=== PATIENT | female | born 1955 | race Caucasian/White ===

== ENCOUNTER 2016-03-07 05:32 | Observation (INO) | payer OTHER ==
[2016-02-23 12:03] VITALS: BMI 24.0
--- NOTE | 2016-02-23 12:46 | PAT Medication Instructions ---
Service Date Feb 23, 2016. Current Home Medication List Alendronate Sodium (Fosamax), 70 MG PO MONDAY Anastrozole (Arimidex), 1 MG PO QAM Aspirin (Aspirin), 325 MG PO prn Biotin (Biotin 5000), 10,000 MCG PO QAM Calcium Carbonate-Vitamin D (Calcium + D), 1 TAB PO QAM Psyllium (Metamucil), 1 DOSE PO QAM Medication Instructions For Your Scheduled Surgery - Check with surgeon for instructions: Anastrozole (Arimidex), 1 MG PO QAM Aspirin (Aspirin), 325 MG PO prn headaches - Continue as usual: Alendronate Sodium (Fosamax), 70 MG PO MONDAY - Hold the following medications the morning of surgery: Biotin (Biotin 5000), 10,000 MCG PO QAM Psyllium (Metamucil), 1 DOSE PO QAM Calcium Carbonate-Vitamin D (Calcium + D), 1 TAB PO QAM If you have any questions please call us at [phone] (Lorena Drew PA-C) or [phone] or [phone]
[2016-02-23 13:50] LABS: BASO % 0.5 %; BASO ABS # 0.03 K/uL (0-0.2); COMPLETE YES; EOS % 1.1 %; HEMATOCRIT 38.2 % (37-47); IG% 0.2 %; LYMPH % 31.5 %; LYMPH ABS # 1.76 K/uL (1.2-3.4); MEAN CELL VOLUME 93.2 fL (80-100); MEAN CORPUSCULAR HEMOGLOBIN 30.7 pg (25-34); MEAN PLATELET VOLUME 9.8 fL (7.4-10.4); MONO % 10.8 %; NEUT % 55.9 %; PLATELET COUNT 303 K/uL (130-400); WHITE BLOOD COUNT 5.58 K/uL (4.8-10.8)
[2016-02-23 14:17] LABS: BUN/CREATININE RATIO 12.7 (10-20); CREATININE 0.97 mg/dl (0.60-1.20); POTASSIUM 4.4 mmol/L (3.5-5.1)
[~2016-03-07] VITALS: Ht 157.5 cm; Wt 61.5 kg
[2016-03-07] VITALS (10 sets, daily range): BP systolic 100–127; BP diastolic 67–77; PULSE 75–96; TEMP 36.3–37.1; O2SAT 97–100; Ht 157.5 cm; Wt 61.5 kg
[~2016-03-07 05:32] MED LIST: ALEN70TA2 PO; ANAS1TAB19 PO; ASPI325T45 PO; BIOTCAP2 PO; CALC600T9 PO; PSYL0.524 PO
[2016-03-07] MEDS ORDERED: METRONIDAZOLE 500MG / NSS IV SCH (06:00)
[2016-03-07] MEDS ORDERED: CIPROFLOXACIN / D5W 400 MG IV SCH (06:00)
[2016-03-07] MEDS ORDERED: LACTATED RINGER'S 1000ML 1,000 ML IV SCH ×2 (06:00→11:25)
[2016-03-07] MEDS ORDERED: DEXAMETHASONE SOD INJ 4 MG/ML VIAL ONE (06:26)
[2016-03-07] MEDS ORDERED: ONDANSETRON INJ 2 MG/ML 2 ML VIAL ONE (06:26)
[2016-03-07] MEDS ORDERED: LIDOCAINE HCL 2% 2 ML VIAL (20MG/ML) ONE (06:26)
[2016-03-07] MEDS ORDERED: ROCURONIUM BROMIDE 10 MG/ML 5 ML VIAL ONE ×2 (06:26→08:58)
[2016-03-07] MEDS ORDERED: PROPOFOL IV EMULSION 10 MG/ML 20 ML VIAL IV ONE (06:26)
[2016-03-07] MEDS ORDERED: FENTANYL CITRATE INJ 50 MCG/1 ML 2 ML VIAL ONE (06:26)
[2016-03-07] MEDS ORDERED: MIDAZOLAM HCL 1 MG/ML 2ML VIAL ONE (06:26)
--- NOTE | 2016-03-07 07:07 | History & Physical Bridge Note ---
H&P Re-Evaluation Bridge Note: I have examined the patient, reviewed the History & Physical and in the interval since the performance of the History & Physical I have noted the following changes of clinical significance:Reviewed possibility of laparotomy as prior colon surgery. TABITHA
[2016-03-07] MEDS ORDERED: HYDROmorphone INJ 2 MG/ML SYR/VIAL ONE (08:04)
[2016-03-07] MEDS ORDERED: PROMETHAZINE HCL INJ 12.5 MG in SODIUM CHLORIDE 0.9% 50ML 50 ML IV PRN ×2 (08:15→11:30)
[2016-03-07] MEDS ORDERED: ATROPINE SULFATE 0.1 MG/ML 5ML SYR IV PRN (08:15)
[2016-03-07] MEDS ORDERED: ONDANSETRON INJ 2 MG/ML 2 ML VIAL IV PRN ×2 (08:15→11:30)
[2016-03-07] MEDS ORDERED: HYDROmorphone INJ 2 MG/ML SYR/VIAL IV PRN (08:15)
[2016-03-07] MEDS ORDERED: KETOROLAC TROMETHAMINE 30 MG/ML VIAL IV. PRN ×2 (08:15→11:30)
[2016-03-07] MEDS ORDERED: GLYCOPYRROLATE INJ 0.2 MG/ML VIAL ONE ×2 (08:16→08:26)
[2016-03-07] MEDS ORDERED: NEOSTIGMINE METHYLSULFATE 5 MG/5 ML SYR ONE (08:26)
--- NOTE | 2016-03-07 10:59 | [facility] Post Operative Brief Note ---
Immediate Operative Summary Operative Date Mar 07, 2016. Pre-Operative Diagnosis Cervical intraepithelial neoplasia III for robotic hysterectomy Post-Operative Diagnosis Intraoperative Cystotomy Procedure(s) Performed Robotic assisted Laparoscopic Repair of Intraoperative Cystotomy Surgeon Diego Melendez MD Brush Holder Assembler Surgeon(s) Dr. Connor Brown Estimated Blood Loss 10 cc Findings Intraop high posterior bladder wall cystotomy appreciated, UOs not involved, closed in 2 layers. Intraop cysto by Dr. Brown demonstrated watertight repair , efflux of methylene blue from both UOs. Drains 18 fr silicone dukes, pelvic drain recommended Anesthesia GAET Complication(s) None Disposition Recovery Room / PACU
[2016-03-07] MEDS ORDERED: METOPROLOL TARTRATE 1 MG/ML VIAL ONE (11:12)
[2016-03-07] MEDS ORDERED: BUPIVACAINE 0.5 % 5 MG/1 ML MPF 30ML VIAL INJ ONE (11:13)
[2016-03-07] MEDS ORDERED: PREMARIN VAG CRM 14 APPLN/30 GM TUBE PV ONE (11:14)
--- NOTE | 2016-03-07 11:25 | [facility] Operative Report ---
Operative Report Operative Date Mar 07, 2016. Pre-Operative Diagnosis Cervical intraepithelial neoplasia III for robotic hysterectomy Post-Operative Diagnosis Same, extensive abdominal adhesions and bladder adhesions Procedure(s) Performed Robotically assisted TLH+BSO. Lysis of adhesions. Cystotomy. Cystoscopy. Surgeon Diego Melendez MD, Kevin Platen Grinder Surgeon(s) Dr. Connor Brown Estimated Blood Loss 40ml Findings Extensive adhesions Specimens Uterus, Cx, adnexa Drains 18 fr silicone dukes, pelvic drain Round 10 EDNA Anesthesia GAET Complication(s) Cystotomy (small) Disposition Recovery Room / PACU Description of Procedure See dict note I attest to the content of the Intraoperative Record and any orders documented therein. Any exceptions are noted below.
[2016-03-07] MEDS ORDERED: MEPERIDINE HCL 50 MG/ML CARP IV PRN (11:30)
[2016-03-07] MEDS ORDERED: SIMETHICONE 80 MG CHEW PO PRN (11:30)
[2016-03-07] MEDS ORDERED: PROMETHAZINE HCL INJ 25 MG in SODIUM CHLORIDE 0.9% 50ML 50 ML IV PRN (11:30)
[2016-03-07] MEDS ORDERED: MEPERIDINE HCL 75 MG/ML CARP IV PRN (11:30)
[2016-03-07] MEDS ORDERED: OXYCODONE/ACETAMINOPHEN 5-325 TAB PO PRN ×2 (11:30)
[2016-03-07] MEDS ORDERED: ZOLPIDEM TARTRATE 5 MG TAB PO PRN (11:30)
[2016-03-07] MEDS ORDERED: BISACODYL 10 MG SUPP PR PRN (11:30)
[2016-03-07] MEDS ORDERED: MAGNESIUM HYDROXIDE SUSP 30 ML UDC PO PRN (11:30)
[2016-03-07] MEDS ORDERED: IBUPROFEN 600 MG TAB PO PRN (11:30)
[2016-03-07] MEDS ORDERED: ACETAMINOPHEN 325 MG TAB PO PRN (11:30)
[2016-03-07] MEDS ORDERED: IV FLUIDS COMPLETED PRN (12:00)
--- NOTE | 2016-03-07 13:17 | Anesthesiology Progress Note ---
Anesthesia Post Op Note Date & Time Mar 07, 2016 at 13:17 Vital Signs Vital Signs Past 12 Hours Date Time Temp Pulse Resp B/P Pulse Ox O2 Delivery O2 Flow Rate FiO2 03/07/16 12:30 100 Nasal Cannula 1.0 03/07/16 12:15 36.0 67 13 124/72 100 Nasal Cannula 2 03/07/16 12:05 80 14 143/84 99 Nasal Cannula 2 03/07/16 11:55 65 20 136/77 98 Mask 10 03/07/16 11:45 72 12 128/77 99 Mask 10 03/07/16 11:37 36.1 91 14 120/91 99 Mask 10 03/07/16 06:05 36.8 75 16 100/77 97 Room Air Notes Mental Status: alert / awake / arousable, participated in evaluation Pt Amnestic to Procedure: Yes Nausea / Vomiting: adequately controlled Pain: adequately controlled Airway Patency, RR, SpO2: stable & adequate BP & HR: stable & adequate Hydration State: stable & adequate Anesthetic Complications: no major complications apparent
--- NOTE | 2016-03-07 13:37 | OPERATIVE REPORT ---
DATE OF OPERATION: 03/07/2016 PREOPERATIVE DIAGNOSIS: Severe cervical intraepithelial neoplasia recurrent. POSTOPERATIVE DIAGNOSES: Same and extensive adhesions of the pelvis. PROCEDURES: Robotically assisted total laparoscopic hysterectomy, bilateral salpingo-oophorectomy, lysis of adhesions and cystoscopy. SURGEON: Dr. Brown. FRAME POLISHER: Dr. Reis and Dr. Melendez. ESTIMATED BLOOD LOSS: 40 mL. FINDINGS: Severe intraoperative adhesions of the colon to the anterior abdominal wall, uterus and the bladder region. DRAINS: Salcido catheter and 18 Greek and a #10 round Zachariah-Yancey pelvic drain. ANESTHETIC: General anesthesia. COMPLICATIONS: Intraoperative cystotomy. DISPOSITION: Recovery room. CLINICAL NOTE: Lurdes was reviewed with the surgery beforehand. Discussed the possibility of open laparotomy with the potential for extensive adhesions and discussed the potential for intraoperative organ injury including bladder, bowel and ureter due to extensive adhesions and prior section. DESCRIPTION OF PROCEDURE: The patient was taken back to recovery room received preoperative antibiotics, was given a general anesthetic, prepped and draped in dorsal lithotomy position in [facility]. Bladder drained. Vaginal opening was somewhat narrow, but we were able to visualize the cervix. It was heavily distorted. This was due to prior LEEP procedure. We were able to identify what we thought initially was the cervical os; however, this was a false passage. We initially inserted a V-Care in place using 0 Vicryl sutures; however, once we realized it was a false passage, we readjusted intraoperatively the V-Care and actually eventually removed this and used a sponge on a stick instead. Gloves were changed and a supraumbilical incision was made with scalpel. Using open Alfonso technique, we cut down through subcutaneous fat to the fascia in the midline. Rectus muscle split. Peritoneal cavity entered and blunt-tipped Alfonso trocar with balloon was then placed. Balloon was inflated and CO2 gas to insufflate the abdomen. FINDINGS: Upper abdomen showed extensive adhesions, specifically the right side was difficult to visualize, the left side had lysed adhesions; however, the uterus was not actually visualized as there were extensive adhesions of the colon over this area. We did obtain deep Trendelenburg position and placed 2 laparoscopic ports on the left side, 1 robotic port on the other 11 mm bladeless accessory port. These were placed under direct visualization. On visualizing here we used the Harmonic scalpel and the 10 mm laparoscope to take down some of the adhesions in the midline abdomen as well. Using Harmonic we made certain to only cut 2 areas which were deemed to be unlikely the bowel and we were able to take down adhesions extensively in the pelvis as well. Specifically, the area of the colon I was able to dissect away with the harmonic up to the anterior bladder region. At this stage, I was actually able to see the uterus itself. There were still adhesions on the left side as well, but I was able to place a right robotic port under direct visualization as well. I could not place a fourth arm as there were too many adhesions, so at this stage, we began to re-dock the robot and began the case from here forth with robotic assistance. Arm #1 was monopolar jass. Arm #2 was bipolar [place]. Using the accessory port 2 to retract on the uterus with a tenaculum and on bowel was a suction clinical documentation nurse at times. The case was begun by first identifying the left and right ureters. They seemed to follow a normal course, it was much more difficult to see on the left side. The bladder flap area was extensively adhesed and could not be seen easily. At this stage, we did identified a window, first starting on the left side of the broad ligament, identified the ureter, made a window between to allow coagulation of the IP ligament proximal to the left ovary and tube, this was then coagulated and cut and this was skeletonized away. I was able to coagulate and cut the round ligament as well on the left side, skeletonized the left uterine vessels, coagulated and cut these as well. Of note, the ureter location was also well away from the area. In the right side the exact same process occurred. We were able to then address the bladder area. Because of the dense adhesions, I retrofilled the bladder with sterile saline and identified the bladder, seemed to be well away from the site. There was no easy plane to be made as the patient had prior and also prior LEEP procedure. In what I felt was a location well away from the bladder and very high up, we cut sharply with monopolar jass and then identified. There was a small cystotomy. The bladder had been tented up undoubtedly due to prior surgeries. The cystotomy was very small and I was actually able to identify the correct plane of the cervix after the cystotomy, I was then able to liberalize adhesions away from this area and then identify a spot where to make an anterior colpotomy. This was done and identified the sponge in the vagina, we then continued this around laterally staying medial of our uterine vessel ligations. Once the cervix was fully detached from the vagina, it was pulled into the vagina and then removed. A sponge and a glove was then placed for maintaining pneumoperitoneum. At this stage, we irrigated generously and were able to identify no active bleeders. Cuff was then closed by exchanging instruments, arm #1 became the andres needle hazmat truck driver, arm #2 the cobra 12 inch 90 day 2-0 V-Loc suture then passed through the accessory port. Cuff vaginal tissue should be noted was very thin and not overly vascular. We did close the cuff from left to right back right to left to ensure there was an airtight closure. Because of the false passage as well which was just posterior and initially right and also on the left we also closed these vaginally as well these defects. At this stage, hemostasis improved in the vagina as well. After cutting the suture of the 2-0 V-Loc 90 day suture, we then removed the needle through the accessory port. At this stage, Dr. Melendez then came into the case, he repaired the bladder, an operative note has been dictated. We then retrofilled the bladder further and ensured it was a watertight seal. Cystoscopy was then performed while patient was in Trendelenburg position. I was able to get good strong jets of blue dye from both left and right ureter openings. The repair seemed watertight and there were no other stitches noted within the bladder from the vaginal cuff repair. After removal of the cystoscope, a new Salcido catheter was placed. Because of poor tissue quality and some ooze from the vagina we did place a pack with Premarin cream into the vagina which will last just overnight. We then placed a drain through the left robotic port after undocking the robot on this area, this was a 10 mm round Zachariah-Yancey. This was placed in the pelvis. This was then sewn in place in the usual fashion and the robot was undocked after instruments were removed. Incisions all injected with Marcaine and irrigated. Fascia closed carefully with numerous [id number] stitches in the umbilical incision. It should be noted her tissue quality was somewhat poor here as well as tissues were thin and somewhat terrible. Deep subcutaneous sutures in the left upper quadrant and umbilical stitch as well with 0 Vicryl, 4-0 subcuticular Monocryl closure with Dermabond. Sponge and instrument counts were correct. The patient sent to operating room in stable condition. Please note, total time of surgery approximately 4 hours. Additionally, discussed cystotomy and extensive adhesions with family. I attest to the content of the Intraoperative Record and any orders documented therein. Any exceptions are noted below. MUMTAZD
--- NOTE | 2016-03-07 14:06 | OPERATIVE REPORT ---
DATE OF OPERATION: 03/07/2016 PREOPERATIVE DIAGNOSIS: Intraoperative bladder injury. POSTOPERATIVE DIAGNOSIS: Same. PROCEDURE: Repair of intraoperative bladder injury. SURGEON: Dr. Bonifacio Melendez. FURNITURE REFINISHER: David Brown MD ANESTHESIA: General anesthesia with endotracheal intubation. ESTIMATED BLOOD LOSS: For this portion of the procedure was minimal. SPECIMENS SENT TO PATHOLOGY: For this portion of the procedure none. DRAINS LEFT IN PLACE: An 18-Lebanese silicone catheter to gravity drainage and a pelvic drain recommended. FINDINGS: The high posterior bladder wall cystotomy repaired in 2 layers with a watertight closure, evidence of methylene blue efflux from both ureters by intraoperative cystoscopy by primary surgeon. BRIEF HISTORY OF PRESENT ILLNESS: Ms. Corbin is a 60-year-old female who is undergoing a robot-assisted laparoscopic extirpated hysterectomy for a history of cervical dysplasia by Dr. Daiman Brown today. Over the course of the procedure after a difficult dissection and lysis of adhesions, an intraoperative bladder injury was appreciated. Intraoperative urgent urology consultation was sought out to assist with the ongoing surgery. DESCRIPTION OF PROCEDURE: The patient had been prepped and draped with ongoing management by the OWNER service. Please refer to their operative report for their portions of the surgery. On entering the OR, I approached the robotic console and evaluated the pelvis. A clean side to side cystotomy of approximately 3-4 cm was noted in the high posterior bladder wall. Bladder neck and Salcido catheter were appreciated coming through the urethra and due to the distance from the bladder neck the odds of intraoperative ureteral injury were felt to be quite slim at this site. No evidence of other bladder injury or abnormalities were appreciated. Using robotic needle drivers, the incision was closed in 2 layers including a 3-0 chromic running suture on the mucosal and deep detrusor layer and a second layer closed of 2-0 Vicryl in a Lembert fashion. After this was complete, greater than 200 mL were placed into the bladder via the sterile Salcido catheter with clear bladder distention and no evidence of any leakage from the cystotomy repair. Bladder was replaced to catheter drainage and the case was continued per the OWNER service. Intraoperative cystoscopy by OWNER was witnessed personally and demonstrated closure posteriorly high in the bladder wall consistent with the intraoperative findings. This was noted to be watertight with the bladder able to be distended visualized without evidence of leakage on the laparoscopic screen. Ureteral orifices were noted to be effluxing methylene blue on both sides. Some mild posterior Salcido trauma was also appreciated with no intravesical papillary lesions or masses noted. Case was turned over to the primary service. FOLLOWUP CARE: I recommend Salcido drainage for approximately 1 week. We will arrange for outpatient cystogram prior to a trial of void and outpatient visit with myself. Consider suppressive antibiotics while Salcido catheter in place seeing postoperative status for example nitrofurantoin 100 mg p.o. at bedtime. I recommend a pelvic drain to monitor for output and any urine leak in the inpatient postoperative period which can be removed prior to discharge home. I attest to the content of the Intraoperative Record and any orders documented therein. Any exceptions are noted below. MTDD
[2016-03-07] MEDS: DOCUSATE SODIUM 100 MG CAP PO SCH (20:11)
[2016-03-07 20:22] LABS: HEMATOCRIT 33.2 % (37-47)
[2016-03-08 03:20] VITALS: BP 103/66; PULSE 95; TEMP 37.5; O2SAT 97
[2016-03-08 06:43] LABS: COMPLETE YES; HEMATOCRIT 31.2 % (37-47); IG% 0.2 %; LYMPH % 13.1 %; LYMPH ABS # 1.59 K/uL (1.2-3.4); MEAN CELL VOLUME 91.8 fL (80-100); MEAN CORPUSCULAR HGB CONC 32.7 g/dl (32-36); MEAN PLATELET VOLUME 9.5 fL (7.4-10.4); MONO % 12.1 %; NEUT % 74.6 %; PLATELET COUNT 194 K/uL (130-400); WHITE BLOOD COUNT 12.12 K/uL (4.8-10.8)
--- NOTE | 2016-03-08 06:58 | OB/GYN Progress Note ---
MASSAGE THERAPIST Progress Note Date of Service Mar 08, 2016. Subjective conversation w/ patient, physical exam, chart review, lab review Ambulation: ambulating normally Voiding: dukes catheter in place Passing Gas: No Diet Tolerance: Regular Diet Lochia: Small Objective Vital Signs Date Time Temp Pulse Resp B/P Pulse Ox O2 Delivery O2 Flow Rate FiO2 03/08/16 03:20 37.5 95 20 103/66 97 Room Air 03/07/16 23:15 37.1 95 16 108/71 97 Room Air 03/07/16 23:15 Room Air 03/07/16 21:28 36.7 03/07/16 21:28 36.9 03/07/16 21:10 36.6 03/07/16 20:20 36.3 90 18 117/76 99 Room Air 90 03/07/16 15:30 36.3 96 18 103/70 99 Room Air 03/07/16 15:30 99 Room Air 03/07/16 14:30 36.3 80 16 106/70 99 Room Air 03/07/16 13:30 36.3 84 16 103/67 100 Nasal Cannula 1.0 03/07/16 13:00 36.3 75 18 117/77 100 Nasal Cannula 1.0 03/07/16 12:30 100 Nasal Cannula 1.0 03/07/16 12:30 36.3 76 18 127/72 100 Nasal Cannula 1.0 03/07/16 12:30 100 Nasal Cannula 1.0 03/07/16 12:15 36.0 67 13 124/72 100 Nasal Cannula 2 03/07/16 12:05 80 14 143/84 99 Nasal Cannula 2 03/07/16 11:55 65 20 136/77 98 Mask 10 03/07/16 11:45 72 12 128/77 99 Mask 10 03/07/16 11:37 36.1 91 14 120/91 99 Mask 10 Physical Exam General Appearance: WELL-APPEARING Respiratory/Chest: lungs clear Cardiovascular: regular rate, rhythm Abdomen: normal bowel sounds, soft Incision Description: Clean, Dry & Intact Extremities: no calf tenderness Laboratory Results Last 24 Hours Test 03/07/16 20:13 03/08/16 06:20 Hemoglobin 10.7 g/dL 10.2 g/dL Hematocrit 33.2 % 31.2 % White Blood Count 12.12 K/uL Red Blood Count 3.40 M/uL Mean Corpuscular Volume 91.8 fL Mean Corpuscular Hemoglobin 30.0 pg Mean Corpuscular Hemoglobin Concent 32.7 g/dl Platelet Count 194 K/uL Mean Platelet Volume 9.5 fL Neutrophils (%) (Auto) 74.6 % Lymphocytes (%) (Auto) 13.1 % Monocytes (%) (Auto) 12.1 % Eosinophils (%) (Auto) 0.0 % Basophils (%) (Auto) 0.0 % Neutrophils # (Auto) 9.03 K/uL Lymphocytes # (Auto) 1.59 K/uL Monocytes # (Auto) 1.47 K/uL Eosinophils # (Auto) 0.00 K/uL Basophils # (Auto) 0.00 K/uL RDW Standard Deviation 45.3 fL RDW Coefficient of Variation 13.6 % Immature Granulocyte % (Auto) 0.2 % Immature Granulocyte # (Auto) 0.03 K/uL Assessment and Plan Post-Op Day Number: 1 Continue Routine Care: POD#1 from 4 hr surgery and cystotomy. Patient well, minimal pain. Urine clear. Drain pulled and vaginal packing removed. Plan home today after seen by urology. Will need to go home with dukes. TABITHA
[2016-03-08] MEDS ORDERED: OXYC-57 PO ×2 (06:59)
[2016-03-08] MEDS ORDERED: MTR600X PO ×2 (06:59)
--- NOTE | 2016-03-08 07:00 | Discharge Instructions ---
Discharge Instructions Admission Reason for Admission: Cervical Intraepithelial Neoplasia Discharge Discharge Diagnosis / Problem: severe cervical dysplasia, adhesions, cystotomy Discharge Goals Goal(s): Routine recovery after surgery Activity Recommendations Activity Limitations: per Instructions/Follow-up section . Instructions / Follow-Up Instructions / Follow-Up POST OPERATIVE: BOWEL FUNCTION/MEDICATIONS: 1. Constipation pain and discomfort are the most common complaints 5-7 days after surgery. Points 2-6 address the things that can help. 2. Chewing gum can help stimulate the gut and help improve digestion and motility. 3. Milk of Magnesia 1-2 times per day until return of bowel function. 4. Colace is a stool softener that helps. Taking this 2-3 times per day until bowel function returns to normal is highly recommended. 5. Dulcolax is a laxative that may be used if several days have passed without a bowel movement. Alternatively Miralax may be used daily instead. 6. Drink plenty of fluids as this will also reduce constipation. 7. Narcotic pain medications will be prescribed by your physician. They are safe to use and we encourage you to use them. If you are not allergic, ibuprofen will also be prescribed. Many patients will be able to transition off of the narcotic medications to ibuprofen by postoperative day 3. ACTIVITY RECOMMENDATIONS: 1. Get plenty of rest and listen to your body. If you are tired, take a nap. 2. You may shower, but do not take a tub bath until you see your doctor at the 2 week post operative visit. 3. Absolutely NO intercourse and nothing in the vagina until you are examined by your doctor at the 6 week visit. At that visit it will be determined when such activities can be resumed. This can range from 6-12 weeks after your surgery depending on healing time. 4. The main physical activity in the first week should be walking. By the second week you can slowly increase activity. There are no limits on walking up and down stairs. 5. Do not lift more than 5-10 lbs for 4 weeks. Remember the "one-handed rule", i.e. if you can lift something with only one hand it's likely okay. 6. Minimize commercial artist lettering like vacuuming and exercising for 4 weeks. "Overdoing it" can lead to incisions not healing, pain and vaginal bleeding , so again, listen to your body. 7. Driving can be resumed when you feel able. Do not drive within 24 hours of taking a narcotic medication. EXPECTATIONS: 1. Vaginal spotting, bleeding and discharge are common after surgery. There may even be an odor to the discharge which is often related to sutures used in the vagina. If you experience heavy vaginal bleeding, call the office number day or night [phone]. 2. Bladder discomfort is common after surgery from the catheter. This usually resolves in 1-2 weeks. 3. By the end of the 3rd or 4th week you should be feeling much better. It may take up to 6 weeks for your energy levels to return to normal. 4. Narcotic medications have side effects such as: dizziness, headache, nausea and/or vomiting. If you suspect your pain medication is causing problems, call our office and we may be able to prescribe an alternate medication. 5. The skin incisions are often covered with a liquid bandage. This will gradually peel off over time. CALL THE OFFICE IF YOU HAVE ANY OF THE FOLLOWIN. Temperature of 101 degrees or higher. 2. Severe abdominal or pelvic pain not relieved by pain medication. 3. Persistent nausea or vomiting. 4. Increased pain with urination or difficulty urinating. 5. Bright red bleeding that soaks more than 1 pad per hour. CONTACT PHONE NUMBERS: Main Office: [phone] Surgical Nurse: [phone] extension [phone] Avoid all tobacco products. If you need help to stop smoking, call [place]'s FREE QUITLINE at . This is a free call. Current Hospital Diet Patient's current hospital diet: Regular Diet Discharge Diet Recommended Diet: Regular Diet Procedures Procedures Performed: Robotic assisted Laparoscopic Repair of Intraoperative Cystotomy Pending Studies Studies pending at discharge: no Medical Emergencies . Who to Call and When: Medical Emergencies: If at any time you feel your situation is an emergency, please call 911 immediately. . Non-Emergent Contact Non-Emergency issues call your: Primary Care Provider . . "Provider Documentation" section prepared by David Brown. VTE Core Measure Inpt VTE Proph given/why not?: Memo Leroy, SCD's
[2016-03-08 07:17] LABS: BUN/CREATININE RATIO 10.2 (10-20); CREATININE 0.93 mg/dl (0.60-1.20); POTASSIUM 4.1 mmol/L (3.5-5.1)
[2016-03-08] MEDS: DOCUSATE SODIUM 100 MG CAP PO SCH (07:38)
--- NOTE | 2016-03-08 08:04 | Anesthesiology Progress Note ---
Anesthesia Post Op Note Date & Time Mar 08, 2016 at 08:03 Vital Signs Vital Signs Past 12 Hours Date Time Temp Pulse Resp B/P Pulse Ox O2 Delivery O2 Flow Rate FiO2 03/08/16 03:20 37.5 95 20 103/66 97 Room Air 03/07/16 23:15 37.1 95 16 108/71 97 Room Air 03/07/16 23:15 Room Air 03/07/16 21:28 36.7 03/07/16 21:28 36.9 03/07/16 21:10 36.6 03/07/16 20:20 36.3 90 18 117/76 99 Room Air 90 Notes Mental Status: alert / awake / arousable, participated in evaluation Pt Amnestic to Procedure: Yes Nausea / Vomiting: adequately controlled Pain: adequately controlled Airway Patency, RR, SpO2: stable & adequate BP & HR: stable & adequate Hydration State: stable & adequate Anesthetic Complications: no major complications apparent
[2016-03-08 08:20] VITALS: BP 94/58; PULSE 89; TEMP 37.3
--- NOTE | 2016-03-08 10:05 | Progress Note ---
Subjective Date of Service: Mar 08, 2016. Subjective Pt evaluation today including: conversation w/ patient, chart review, lab review Voiding: dukes catheter in place (patent, draining clear, light green urine) 60 yo female s/p intraoperative bladder repair of bladder injury. Pt doing well this morning. Denies pain or n/v. Dukes in place draining clear, light green urine. Review of Systems Constitutional: No chills, No fever Respiratory: No shortness of breath Cardiac: No chest pain Abdomen: No nausea, No pain, No vomiting Female : No hematuria Heme: No abnormal bleeding/bruising Objective Vital Signs Date Time Temp Pulse Resp B/P Pulse Ox O2 Delivery O2 Flow Rate FiO2 03/08/16 08:20 Room Air 03/08/16 08:20 37.3 89 18 94/58 Room Air 03/08/16 03:20 37.5 95 20 103/66 97 Room Air 03/07/16 23:15 37.1 95 16 108/71 97 Room Air 03/07/16 23:15 Room Air 03/07/16 21:28 36.7 03/07/16 21:28 36.9 03/07/16 21:10 36.6 03/07/16 20:20 36.3 90 18 117/76 99 Room Air 90 03/07/16 15:30 36.3 96 18 103/70 99 Room Air 03/07/16 15:30 99 Room Air 03/07/16 14:30 36.3 80 16 106/70 99 Room Air 03/07/16 13:30 36.3 84 16 103/67 100 Nasal Cannula 1.0 03/07/16 13:00 36.3 75 18 117/77 100 Nasal Cannula 1.0 03/07/16 12:30 100 Nasal Cannula 1.0 03/07/16 12:30 36.3 76 18 127/72 100 Nasal Cannula 1.0 03/07/16 12:30 100 Nasal Cannula 1.0 03/07/16 12:15 36.0 67 13 124/72 100 Nasal Cannula 2 03/07/16 12:05 80 14 143/84 99 Nasal Cannula 2 03/07/16 11:55 65 20 136/77 98 Mask 10 03/07/16 11:45 72 12 128/77 99 Mask 10 03/07/16 11:37 36.1 91 14 120/91 99 Mask 10 Physical Exam General Appearance: no apparent distress Eyes: normal inspection ENT: hearing grossly normal Neck: no JVD Respiratory/Chest: no respiratory distress, no accessory muscle use Cardiovascular: no JVD Abdomen: + pertinent finding (soft abdomen; abdominal incisions c/d/i) Extremities: normal inspection Neurologic/Psychiatric: alert, normal mood/affect, oriented x 3 Skin: normal color Laboratory Results Last 24 Hours Test 03/07/16 20:13 03/08/16 06:20 Hemoglobin 10.7 g/dL 10.2 g/dL Hematocrit 33.2 % 31.2 % White Blood Count 12.12 K/uL Red Blood Count 3.40 M/uL Mean Corpuscular Volume 91.8 fL Mean Corpuscular Hemoglobin 30.0 pg Mean Corpuscular Hemoglobin Concent 32.7 g/dl Platelet Count 194 K/uL Mean Platelet Volume 9.5 fL Neutrophils (%) (Auto) 74.6 % Lymphocytes (%) (Auto) 13.1 % Monocytes (%) (Auto) 12.1 % Eosinophils (%) (Auto) 0.0 % Basophils (%) (Auto) 0.0 % Neutrophils # (Auto) 9.03 K/uL Lymphocytes # (Auto) 1.59 K/uL Monocytes # (Auto) 1.47 K/uL Eosinophils # (Auto) 0.00 K/uL Basophils # (Auto) 0.00 K/uL RDW Standard Deviation 45.3 fL RDW Coefficient of Variation 13.6 % Immature Granulocyte % (Auto) 0.2 % Immature Granulocyte # (Auto) 0.03 K/uL Sodium Level 142 mmol/L Potassium Level 4.1 mmol/L Chloride Level 108 mmol/L Carbon Dioxide Level 27 mmol/L Anion Gap 7.0 mmol/L Blood Urea Nitrogen 10 mg/dl Creatinine 0.93 mg/dl Est Creatinine Clear Calc Drug Dose 54.8 ml/min Estimated GFR () 76.9 Estimated GFR (Non- 66.3 BUN/Creatinine Ratio 10.2 Random Glucose 111 mg/dl Calcium Level 8.0 mg/dl Assessment and Plan POD #1 s/p intraoperative repair of bladder injury Pt doing well post-op. Recommend leaving dukes catheter in place for 7 days. Will plan for outpatient cystogram and TOV at that time. No further management at this time. Thanks for allowing us to participate in this pt's care. Recall PRN issues. Discharge planning: home
[2016-03-08 11:59] VITALS: BP 94/58; PULSE 89; TEMP 37.3; O2SAT 97
--- NOTE | 2016-03-15 12:20 | DISCHARGE SUMMARY ---
Lurdes had a complicated total laparoscopic hysterectomy on 03/07/2016. It was complicated by severe intraabdominal adhesions and bladder adhesions. Operative note as dictated. She did have a cystotomy into her bladder which was repaired at the time of surgery and laparoscopically. Her course in the hospital was uncomplicated. By postop day #1 she met discharge criteria. Specifically at that time she was ambulating well, tolerating an oral diet, minimal pain and no vaginal bleeding. She had a Salcido catheter in place as per urology protocol and had no extremity pain. PHYSICAL EXAMINATION: VITAL SIGNS: Her vital signs were stable. She was afebrile. LUNGS: Clear. CARDIOVASCULAR EXAMINATION: Normal rate and rhythm. No audible murmur. ABDOMINAL EXAMINATION: Benign. Nontender. Bowel sounds positive. Incision is clean, dry and intact. EXTREMITY EXAMINATION: Negative. IMPRESSION AND PLAN: Postop day #1 from complicated 4-hour total laparoscopic hysterectomy with multiple adhesions. Sent home with catheter and followup with urology care. Patient given pain medication prescriptions as well and told to contact us with any other concerns.
== END 2016-03-08 13:25 | disposition home or self-care (01) ==
LOC: C.ACU 05:32 → C.OBG 11:27
PROVIDERS: ADMIT Obstetrics & Gynecology; ATTEND Obstetrics & Gynecology
DX: D06.9 Carcinoma in situ of cervix, unspecified (principal); K66.0 Peritoneal adhesions (postprocedural) (postinfection); N99.71 Accidental puncture and laceration of a genitourinary system organ or structure during a genitourinary system procedure
CPT/HCPCS: 51999; 58571; S2900

== ENCOUNTER → 2016-03-15 | Outpatient (CLI) | payer OTHER ==
[~2016-03-15] MED LIST changes: +MTR600X PO; +OXYC-57 PO
--- NOTE | 2016-03-15 12:16 | DIAGNOSTIC IMAGING REPORT ---
CYSTOGRAM CLINICAL HISTORY: S37.23XA Laceration of bladder COMPARISON STUDY: None. FLUOROSCOPY TIME: 1.2 minutes. FINDINGS: A total of 9 fluoroscopic spot images of the bladder were obtained. Contrast was placed in the indwelling Salcido catheter. A total of 375 cc of Cysto-Conray was inserted. The bladder is normal in size and shape. There is no extraluminal contrast to suggest a leak. No postvoid residual. IMPRESSION: Normal bladder. Electronically signed by: Babatunde Whalen M.D. 03/15/2016 12:14 PM Dictated Date/Time: 03/15/2016 12:13 PM
== END | disposition home or self-care (01) ==
LOC: C.RAD 11:24
PROVIDERS: ATTEND Urology
DX: S37.23XA Laceration of bladder, initial encounter (principal); X58.XXXA Exposure to other specified factors, initial encounter

== ENCOUNTER → 2016-10-05 | Outpatient (CLI) | payer OTHER | END | disposition home or self-care (01) | LOC: C.PAPS 15:04 | PROVIDERS: ATTEND Obstetrics & Gynecology | DX: D06.9 Carcinoma in situ of cervix, unspecified (principal); N95.2 Postmenopausal atrophic vaginitis ==